=== PATIENT | female | born 1980 | race Caucasian/White ===

== ENCOUNTER 2017-05-28 21:20 | Inpatient (IN) | payer MEDICAID, OTHER ==
[~2017-05-28] VITALS: Ht 167.6 cm; Wt 65.4 kg
--- NOTE | 2017-05-28 21:33 | PD ---
HPI Chief Complaint: Flank/Kidney Pain Time Seen by Provider: 21:26 Travel History International Travel<30 days: No Contact w/Intl Traveler<30days: No Traveled to known affect area: No History of Present Illness HPI 36-year-old female presents to emergency Department with complaint of right flank pain 4 days. Has history of kidney stones. Reports hematuria that started yesterday. Reports dysuria. Denies fevers. Reports vomiting. Denies vaginal discharge, odor. Has been taking ibuprofen for symptom management. Rates pain 10/10. Describes as a stabbing sensation. Pain is constant. No know aggravating or relieving factors. Last menstrual period one week ago. History of asthma. Denies illicit drug use. Denies tobacco use. Does not have an established primary care provider. Has no medical complaints. No other modifying factors or associated signs and symptoms. PFSH Past Medical History Asthma: Yes Social History Tobacco Use: No Allergies-Medications (Allergen,Severity, Reaction): Coded Allergies: Penicillins (Verified Allergy, Unknown, 05/28/17) ciprofloxacin (Verified Allergy, Unknown, 05/28/17) ketorolac (Verified Allergy, Unknown, 05/28/17) Review of Systems Except as stated in HPI: all other systems reviewed are Neg Physical Exam Narrative GENERAL: Well-nourished, well-developed female patient, in no acute distress SKIN: Warm and dry. No rash. HEAD: Atraumatic. Normocephalic. EYES: Pupils equal and round. No scleral icterus. No injection or drainage. ENT: Mucosa pink and moist. NECK: Trachea midline. CARDIOVASCULAR: Regular rate and rhythm. No murmur appreciated. RESPIRATORY: No accessory muscle use. Clear to auscultation. Breath sounds equal bilaterally. GASTROINTESTINAL: Abdomen soft, non-tender, nondistended. Hepatic and splenic margins not palpable. Bowel sounds are active 4 quadrants. Bladder tender and nondistended. MUSCULOSKELETAL: No obvious deformities. No clubbing. No cyanosis. No edema. BACK: Right CVA tenderness NEUROLOGICAL: Awake and alert. Oriented 3. No obvious cranial nerve deficits. Motor grossly within normal limits. Normal speech. Moves all extremities. 5/5 strength to all extremities. PSYCHIATRIC: Appropriate mood and affect; insight and judgment normal. Data Data Last Documented VS Vital Signs Date Time Temp Pulse Resp B/P (MAP) Pulse Ox O2 Delivery O2 Flow Rate FiO2 05/28/17 22:20 99 Room Air 05/28/17 22:00 82 16 112/72 (85) Orders Orders Complete Blood Count With Diff (05/28/17:27) Comprehensive Metabolic Panel (05/28/17:27) Lipase (05/28/17:27) Urinalysis - C+S If Indicated (05/28/17:) Ct Abd/Pel W/O Iv Contrast (05/28/17:27) Iv Access Insert/Monitor (05/28/17:27) Ecg Monitoring (05/28/17:) Oximetry (05/28/17:) Ed Urine Pregnancytest Poc (05/28/17:27) Morphine Inj (Morphine Inj) (05/28/17 22:00) Ondansetron Inj (Zofran Inj) (05/28/17 22:00) Sodium Chlor 0.9% 1000 Ml Inj (Ns 1000 M (05/28/17 21:53) Sodium Chloride 0.9% Flush (Ns Flush) (05/28/17 22:00) Urine Culture (05/28/17 22:13) Ceftriaxone Inj (Rocephin Inj) (05/28/17 23:00) Labs Laboratory Tests Test 05/28/17 22:00 05/28/17 22:13 White Blood Count 10.7 TH/MM3 Red Blood Count 4.20 MIL/MM3 Hemoglobin 10.5 GM/DL Hematocrit 33.0 % Mean Corpuscular Volume 78.6 FL Mean Corpuscular Hemoglobin 25.1 PG Mean Corpuscular Hemoglobin Concent 31.9 % Red Cell Distribution Width 18.2 % Platelet Count 471 TH/MM3 Mean Platelet Volume 7.6 FL Neutrophils (%) (Auto) 60.0 % Lymphocytes (%) (Auto) 30.4 % Monocytes (%) (Auto) 6.9 % Eosinophils (%) (Auto) 1.6 % Basophils (%) (Auto) 1.1 % Neutrophils # (Auto) 6.4 TH/MM3 Lymphocytes # (Auto) 3.3 TH/MM3 Monocytes # (Auto) 0.7 TH/MM3 Eosinophils # (Auto) 0.2 TH/MM3 Basophils # (Auto) 0.1 TH/MM3 CBC Comment DIFF FINAL Differential Comment Urine Color YELLOW Urine Turbidity CLOUDY Urine pH 5.5 Urine Specific [place] 1.023 Urine Protein 30 mg/dL Urine Glucose (UA) NEG mg/dL Urine Ketones NEG mg/dL Urine Occult Blood LARGE Urine Nitrite NEG Urine Bilirubin NEG Urine Urobilinogen LESS THAN 2.0 MG/DL Urine Leukocyte Esterase MOD Urine RBC 5 /hpf Urine WBC 18 /hpf Urine Squamous Epithelial Cells 36 /hpf Urine Amorphous Sediment RARE Urine Bacteria FEW /hpf Urine Mucus FEW /lpf Microscopic Urinalysis Comment CULTURE INDICATED MDM Medical Decision Making Medical Screen Exam Complete: Yes Emergency Medical Condition: Yes Medical Record Reviewed: Yes Differential Diagnosis Pyelonephritis, nephrolithiasis, hydronephrosis, obstruction Narrative Course 36-year-old female with right flank pain and hematuria. Has history of kidney stones. Patient placed on cardiopulmonary monitor. IV site obtained. CBC, CMP , lipase, urinalysis, UPT, CT abdomen/pelvis, morphine, Zofran, normal saline bolus ordered. 2255: Urinalysis with signs of infection. 1 g Rocephin ordered. 2300: Dr. Padron assumed patient care at this time. See her note for final patient disposition. Rose Hernandez [facility] May 28, 2017 21:33
[2017-05-28] MEDS ORDERED: SODIUM CHLOR 0.9% 1000 ML INJ 1,000 ML IV SCH (21:53)
[2017-05-28 22:00] VITALS: BP 112/72; PULSE 82; RESP 16; O2SAT 99
[2017-05-28] MEDS ORDERED: SODIUM CHLORIDE 0.9% FLUSH 10 ML FLUSH IV FLUSH PRN (22:00)
[2017-05-28] MEDS ORDERED: MORPHINE SULFATE 4 MG/ML INJ IV PUSH ONE (22:00)
[2017-05-28] MEDS ORDERED: ONDANSETRON HCL 4 MG/2 ML VIAL IVP ONE (22:00)
[2017-05-28 22:20] VITALS: O2SAT 99
[2017-05-28 22:42] LABS: AUTOMATED NEUTROPHIL # 6.4 TH/MM3 (1.8-7.7); BASOPHIL # 0.1 TH/MM3 (0-0.2); BASOPHIL % 1.1 % (0.0-2.0); EOSINOPHIL # 0.2 TH/MM3 (0-0.4); EOSINOPHIL % 1.6 % (0.0-4.0); HEMO FLAGS DIFF FINAL; LYMPH % 30.4 % (9.0-44.0); LYMPHOCYTE # 3.3 TH/MM3 (1.0-4.8); MEAN CELL VOLUME 78.6 FL (80.0-100.0); MEAN CORPUSCULAR HEMOGLOBIN 25.1 PG (27.0-34.0); MEAN CORPUSCULAR HGB CONC 31.9 % (32.0-36.0); MONO % 6.9 % (0.0-8.0); PLATELET COUNT 471 TH/MM3 (150-450); RED CELL DISTRIBUTION WIDTH 18.2 % (11.6-17.2); WHITE BLOOD COUNT 10.7 TH/MM3 (4.0-11.0)
[2017-05-28 22:44] LABS: BACTERIA, URINE FEW /hpf; BLOOD, URINE LARGE (NEG); COMMENT (UR) CULTURE INDICATED; CULTURE IF INDICATED CULTURE INDICATED; GLUCOSE,URINE NEG (NEG); KETONE, URINE NEG (NEG); MUCUS URINE FEW /lpf (OCC); NITRITE,URINE NEG (NEG); PH, URINE 5.5 (5.0-8.5); SQUAMOUS EPITHELIAL CELL URINE 36 /hpf (0-5); URINE COLOR YELLOW (YELLW/STRAW)
[2017-05-28] MEDS ORDERED: cefTRIAXone INJ 1,000 MG in SODIUM CHLORIDE 0.9% INJ 100 ML IV ONE (23:00)
[2017-05-28 23:02] LABS: ALT (GPT) 18 U/L (10-53); ANION GAP 7 MEQ/L (5-15); AST (GOT) 21 U/L (15-37); BICARBONATE 28.5 MEQ/L (21.0-32.0); BLOOD UREA NITROGEN 12 MG/DL (7-18); CHLORIDE 104 MEQ/L (98-107); GLOMERULAR FILTRATION RATE 121 ML/MIN (>89); SODIUM (NA) 139 MEQ/L (136-145)
[2017-05-28 23:03] LABS: ALKALINE PHOSPHATASE 103 U/L (45-117); TOTAL BILIRUBIN ADULT 0.4 MG/DL (0.2-1.0)
[2017-05-28] MEDS ORDERED: PHENAZOPYRIDINE HCL 100 MG TAB PO ONE (23:30)
--- NOTE | 2017-05-28 23:35 | RADRPT ---
EXAM DATE/TIME: 05/28/2017 22:51 [place] COMPARISON: No previous studies available for comparison. INDICATIONS : Left flank pain. ORAL CONTRAST: No oral contrast ingested. RADIATION DOSE: 5.88 CTDIvol (mGy) MEDICAL HISTORY : None SURGICAL HISTORY : None. ENCOUNTER: Initial ACUITY: 1 day PAIN SCALE: 8/10 LOCATION: Left flank abdomen TECHNIQUE: Volumetric scanning of the abdomen and pelvis was performed. Using automated exposure control and ad justment of the mA and/or kV according to patient size, radiation dose was kept as low as reasonably achievable to obtain optimal diagnostic quality images. DICOM format image data is available electro nically for review and comparison. FINDINGS: LOWER LUNGS: The visualized lower lungs are clear. LIVER: Cholecystectomy clips. Liver is within normal limits. SPLEEN: Normal size without lesion. PANCREAS: Within normal limits. KIDNEYS: Normal in size and shape. There is no mass, stone, or hydronephrosis. ADRENAL GLANDS: Within normal limits. VASCULAR: There is no aortic aneurysm. BOWEL/MESENTERY: Scattered colonic diverticula. Small amount of free fluid in the dependent portion of the pelvis but no focal inflammatory changes to suggest acute diverticulitis. The cecum has a transverse configurati on in the pelvis. Appendix is within normal limits. ABDOMINAL WALL: Within normal limits. RETROPERITONEUM: There is no lymphadenopathy. BLADDER: No wall thickening or mass. REPRODUCTIVE: 4.2 cm cystic mass in the right adnexa. INGUINAL: There is no lymphadenopathy or hernia. MUSCULOSKELETAL: Transitional vertebral body at the lumbosacral junction with prominent arthritic findings at the righ t lateral lumbosacral articulation. Severe arthritic findings of the right hip with severe posterior joint narrowing osteophyte formation, and multiple bone erosions. Large right hip joint effusion. CONCLUSION: 1. No renal or ureteral calculi identified. No evidence of hydronephrosis. 2. Severe right hip arthrosis with severe joint narrowing, large joint effusion, and multiple bony er osions. 3. 4 cm cystic mass in the right adnexa. Most likely to represent an ovarian cyst. 4. Small amount of free fluid in the pelvis. 5. Colonic diverticula but no evidence of acute diverticulitis. Maximiliano Guevara MD on May 28, 2017 at 23:22 Board Certified Radiologist. This report was verified electronically.
[2017-05-28] MEDS ORDERED: MORPHINE SULFATE 2 MG/ML INJ IV PUSH ONE (23:45)
[2017-05-28 23:49] VITALS: TEMP 97.1
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
[2017-05-29] VITALS (7 sets, daily range): BP systolic 80–122; BP diastolic 41–78; PULSE 60–102; RESP 17–22; TEMP 97.6–98.4; O2SAT 96–100
[2017-05-29] MEDS ORDERED: ACETAMINOPHEN/HYDROcodone 325 MG/5 MG TAB PO PRN (02:15)
[2017-05-29] MEDS ORDERED: BISACODYL 10 MG SUPP RECTAL PRN (02:15)
[2017-05-29] MEDS ORDERED: SODIUM CHLORIDE 0.9% FLUSH 10 ML FLUSH IV FLUSH PRN (02:15)
[2017-05-29] MEDS ORDERED: MAGNESIUM HYDROXIDE SUSP 30 ML CUP PO PRN (02:15)
[2017-05-29] MEDS ORDERED: MORPHINE SULFATE 2 MG/ML INJ IV PRN (02:15)
[2017-05-29] MEDS ORDERED: ACETAMINOPHEN 325 MG TAB PO PRN (02:15)
[2017-05-29] MEDS ORDERED: LACTULOSE SYRUP 20 GM/30 ML CUP PO PRN (02:15)
[2017-05-29] MEDS ORDERED: SENNOSIDES 8.6 MG TAB PO PRN (02:15)
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
[2017-05-29] MEDS: SODIUM CHLOR 0.9% 1000 ML INJ 1,000 ML IV SCH ×2 (03:00→16:00)
[2017-05-29 06:34] LABS: BETA HCG QUANT LESS THAN 1 MIU/ML (0-5)
[2017-05-29] MEDS ORDERED: MORPHINE SULFATE 2 MG/ML INJ IV PUSH PRN (08:00)
[2017-05-29] MEDS: DOCUSATE SODIUM 50 MG/SENNA 8.6 MG TAB PO SCH ×2 (08:29→20:46)
[2017-05-29] MEDS: ACETAMINOPHEN/HYDROcodone 325 MG/7.5 MG TAB PO PRN ×2 (08:29→16:00)
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
[2017-05-29] MEDS ORDERED: ALBUAER3 INH (10:00)
--- NOTE | 2017-05-29 11:06 | RADRPT ---
EXAM DATE/TIME: 05/29/2017 10:04 [facility] COMPARISON: No previous studies available for comparison. INDICATIONS : Cough. MEDICAL HISTORY : Asthma. SURGICAL HISTORY : None. ENCOUNTER: Initial ACUITY: 2 days PAIN SCORE: 0/10 LOCATION: Bilateral chest FINDINGS: A single view of the chest demonstrates the lungs to be symmetrically aerated without evidence of mas s, infiltrate or effusion. The cardiomediastinal contours are unremarkable. Osseous structures are intact. CONCLUSION: No acute disease. Kasi Melgar MD on May 29, 2017 at 11:04 Board Certified Radiologist. This report was verified electronically.
[2017-05-29] MEDS: RESP: ALBUTEROL 2.5 MG/IPRATROPIUM 0.5 MG NEB (SCH) NEB ×3 (11:22→19:27)
[2017-05-29] MEDS: SODIUM CHLORIDE 0.9% FLUSH 10 ML FLUSH IV FLUSH SCH ×2 (11:27→20:46)
[2017-05-29] MEDS: guaiFENesin E.R. 600 MG TAB PO SCH ×2 (11:27→20:46)
[2017-05-29] MEDS ORDERED: SODIUM CHLORID 0.9% 500 ML INJ 500 ML IV ONE (12:15)
[2017-05-29 13:34] LABS: AUTOMATED NEUTROPHIL # 2.8 TH/MM3 (1.8-7.7); BASOPHIL % 0.7 % (0.0-2.0); EOSINOPHIL # 0.2 TH/MM3 (0-0.4); EOSINOPHIL % 3.6 % (0.0-4.0); HEMATOCRIT 28.7 % (35.0-46.0); HEMO FLAGS DIFF FINAL; LYMPH % 42.5 % (9.0-44.0); LYMPHOCYTE # 2.6 TH/MM3 (1.0-4.8); MEAN CELL VOLUME 78.3 FL (80.0-100.0); MEAN CORPUSCULAR HEMOGLOBIN 25.1 PG (27.0-34.0); MONO % 7.3 % (0.0-8.0); NEUT % 45.9 % (16.0-70.0); PLATELET COUNT 386 TH/MM3 (150-450); RED BLOOD COUNT 3.66 MIL/MM3 (4.00-5.30); RED CELL DISTRIBUTION WIDTH 18.1 % (11.6-17.2)
[2017-05-29] MEDS: GABAPENTIN 300 MG CAP PO SCH ×2 (14:44→19:05)
[2017-05-29] MEDS: ACETAMINOPHEN/HYDROcodone 325 MG/10 MG TAB PO PRN (20:47)
[2017-05-29 21:03] LABS: FERRITIN 7 NG/ML (8-252)
[2017-05-29 21:15] LABS: TRANSFERRIN IRON PROFILE 234 MG/DL (200-360)
[2017-05-29] MEDS ORDERED: ZOLPIDEM TARTRATE 10 MG TAB PO ONE (21:45)
[2017-05-29] MEDS ORDERED: cefTRIAXone INJ 1,000 MG in SODIUM CHLORIDE 0.9% INJ 100 ML IV SCH (23:00)
[2017-05-30] MEDS ORDERED: oxyCODONE/ACETAMINOPHEN 10 MG/325 MG TAB PO ONE
[2017-05-30] MEDS: ONDANSETRON HCL 4 MG/2 ML VIAL IVP PRN (05:59)
[2017-05-30] MEDS: RESP: ALBUTEROL 2.5 MG/IPRATROPIUM 0.5 MG NEB (SCH) NEB ×3 (07:38→20:00)
[2017-05-30 07:52] VITALS: BP 112/70; PULSE 81; RESP 24; TEMP 98.4; O2SAT 100
[2017-05-30 08:04] LABS: ALT (GPT) 15 U/L (10-53); ANION GAP 8 MEQ/L (5-15); AST (GOT) 14 U/L (15-37); BICARBONATE 24.7 MEQ/L (21.0-32.0); BLOOD UREA NITROGEN 14 MG/DL (7-18); CHLORIDE 108 MEQ/L (98-107); GLOMERULAR FILTRATION RATE 220 ML/MIN (>89); POTASSIUM 3.9 MEQ/L (3.5-5.1); SODIUM (NA) 141 MEQ/L (136-145)
[2017-05-30 08:06] LABS: ALKALINE PHOSPHATASE 77 U/L (45-117); TOTAL BILIRUBIN ADULT 0.2 MG/DL (0.2-1.0)
[2017-05-30 08:13] LABS: AUTOMATED NEUTROPHIL # 2.6 TH/MM3 (1.8-7.7); BASOPHIL % 0.7 % (0.0-2.0); EOSINOPHIL # 0.3 TH/MM3 (0-0.4); EOSINOPHIL % 4.7 % (0.0-4.0); HEMATOCRIT 30.5 % (35.0-46.0); HEMO FLAGS DIFF FINAL; LYMPH % 42.1 % (9.0-44.0); LYMPHOCYTE # 2.4 TH/MM3 (1.0-4.8); MEAN CELL VOLUME 78.9 FL (80.0-100.0); MEAN CORPUSCULAR HEMOGLOBIN 24.7 PG (27.0-34.0); MEAN CORPUSCULAR HGB CONC 31.3 % (32.0-36.0); MONO % 6.2 % (0.0-8.0); NEUT % 46.3 % (16.0-70.0); PLATELET COUNT 340 TH/MM3 (150-450); RED BLOOD COUNT 3.87 MIL/MM3 (4.00-5.30); RED CELL DISTRIBUTION WIDTH 18.1 % (11.6-17.2); WHITE BLOOD COUNT 5.6 TH/MM3 (4.0-11.0)
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
[2017-05-30] MEDS: guaiFENesin E.R. 600 MG TAB PO SCH ×2 (09:03→20:28)
[2017-05-30] MEDS: FERROUS SULFATE 325 MG (65 MG ELEMENTAL IRON) TAB PO SCH ×2 (09:03→20:31)
[2017-05-30] MEDS: ASCORBIC ACID 500 MG TAB PO SCH ×2 (09:04→20:28)
[2017-05-30] MEDS: DOCUSATE SODIUM 50 MG/SENNA 8.6 MG TAB PO SCH ×2 (09:04→20:28)
[2017-05-30] MEDS: SODIUM CHLORIDE 0.9% FLUSH 10 ML FLUSH IV FLUSH SCH ×2 (09:04→21:00)
[2017-05-30] MEDS: ACETAMINOPHEN/HYDROcodone 325 MG/10 MG TAB PO PRN ×4 (09:05→20:28)
[2017-05-30] MEDS: LIDOCAINE HCL 5% PATCH T-DERMAL SCH ×2 (11:51→16:59)
[2017-05-30] MEDS: GABAPENTIN 300 MG CAP PO SCH ×3 (11:52→18:09)
--- NOTE | 2017-05-30 11:52 | PD.RAD ---
Post Procedure Progress Note Pre Procedure Diagnosis: (1) Hip joint effusion Post Procedure Diagnosis: (1) Hip joint effusion Procedure Date: May 30, 2017 Supervising Radiologist: Dragan Harris Proceduralist/Assist: Nelson Owen RT(R), RT Ene(R)() Anesthesia: Local Plan of Activity Patient to Unit: Nursing Unit Patient Condition: Good See PACS Report for procedural detail/treatment Drainage Procedure Procedure 1 Imaging Guidance: Fluoroscopy Side: Right Procedure Type: Aspiration (hip) Fluid Removal (CCs): 5 Fluid Description: Eve, Red Dragan Harris MD May 30, 2017 11:52
[2017-05-30] MEDS ORDERED: IOHEXOL 350 MG/ML 100 ML BTL (for RAD DIAG) OTHER ONE (11:55)
[2017-05-30] MEDS: hydrOXYzine HCL 25 MG TAB PO PRN ×2 (12:50→20:27)
[2017-05-30 13:02] VITALS: BP 103/64; PULSE 81; RESP 24; TEMP 98.6; O2SAT 100
[2017-05-30] MEDS ORDERED: PIPERACIL-TAZO 3.375 GM PREMIX 50 ML IV SCH (16:45)
[2017-05-30] MEDS ORDERED: Vancomycin Consult Pharmacy 1 EA OTHER SCH (16:45)
--- NOTE | 2017-05-30 16:48 | HHI.PR ---
Subjective Remarks Patient complaining of acute on chronic right hip pain. She said the past few weeks have worsened. Patient recently moved here from [facility]. She stated that she was on chronic pain medication prior. She stated no one is prescribing her pain medication moment but her friend will give her pain medication when needed. Patient stated that she was also on anxiety medication she was in [place] and stated that she feels anxious at the moment. Otherwise no other complaints. IV morphine was held secondary to hypotension caused by IV morphine. she also stated that prior to auscultation she took clonidine from her friend because she stated that it helped her sleep. Objective Vitals Vital Signs Date Time Temp Pulse Resp B/P (MAP) Pulse Ox O2 Delivery O2 Flow Rate FiO2 05/30/17 13:02 98.6 81 24 103/64 (77) 100 05/30/17 07:52 98.4 81 24 112/70 (84) 100 05/29/17 23:37 98.2 94 17 114/68 (83) 96 05/29/17 19:02 98.1 102 17 122/78 (93) 97 I/O 05/29/17 05/29/17 05/29/17 05/30/17 05/30/17 05/30/17 07:00 15:00 23:00 07:00 15:00 23:00 # Voids 1 Result Diagram: 05/30/17 0656 05/30/17 0656 Objective Remarks GENERAL:in NAD CARDIOVASCULAR: Regular rate and rhythm without murmurs, gallops, or rubs. RESPIRATORY: Breath sounds equal bilaterally. No accessory muscle use. GASTROINTESTINAL: Abdomen soft, non-tender, nondistended. MUSCULOSKELETAL right help + TTP of right hip and decreased range of motion secondary to pain. No erythema noted. BACK: Nontender without obvious deformity. No CVA tenderness. Medications and IVs Current Medications Morphine Sulfate (Morphine Inj) 4 mg ONCE ONCE IV PUSH Last administered on 22:19; Start 05/28/17 at 22:00; Stop 05/28/17 at 22:01; Status DC Ondansetron HCl (Zofran Inj) 4 mg ONCE ONCE IVP Last administered on 22:19; Start 05/28/17 at 22:00; Stop 05/28/17 at 22:01; Status DC Sodium Chloride 1,000 ml @ 1,000 mls/hr Q1H IV Last administered on 22:19; Start 05/28/17 at 21:53; Stop 05/28/17 at 22:52; Status DC Sodium Chloride (NS Flush) 2 ml UNSCH PRN IV FLUSH FLUSH AFTER USING IV ACCESS ; Start 05/28/17 at 22:00; Stop 05/29/17 at 09:52; Status DC Ceftriaxone Sodium 1000 mg/ Sodium Chloride 100 ml @ 200 mls/hr ONCE ONCE IV Last administered on 05/28/17 23:40; Start 05/28/17 at 23:00; Stop 05/28/17 at 23:29; Status DC Phenazopyridine HCl (Pyridium) 100 mg ONCE ONCE PO Last administered on 00:56; Start 05/28/17 at 23:30; Stop 05/28/17 at 23:31; Status DC Morphine Sulfate (Morphine Inj) 2 mg ONCE ONCE IV PUSH Last administered on 23:41; Start 05/28/17 at 23:45; Stop 05/28/17 at 23:46; Status DC Ceftriaxone Sodium 1000 mg/ Sodium Chloride 100 ml @ 200 mls/hr Q24H IV Last administered on 05/29/17 23:49; Start 05/29/17 at 23:00 Sodium Chloride (NS Flush) 2 ml UNSCH PRN IV FLUSH FLUSH AFTER USING IV ACCESS ; Start 05/29/17 at 02:15 Sodium Chloride (NS Flush) 2 ml BID IV FLUSH Last administered on 05/29/17 11 :27; Start 05/29/17 at 09:00 Ondansetron HCl (Zofran Inj) 4 mg Q6H PRN IVP NAUSEA OR VOMITING Last administered on 05/30/17 05:59; Start 05/29/17 at 02:15 Acetaminophen (Tylenol) 650 mg Q6H PRN PO FEVER/PAIN SCALE 1 TO 2; Start 05/29 at 02:15 Acetaminophen/ Hydrocodone Bitart ([place] 5-325 Mg) 1 tab Q4H PRN PO PAIN SCALE 3 TO 5 Last administered on 05/29/17 02:37; Start 05/29/17 at 02:15 Morphine Sulfate (Morphine Inj) 2 mg Q3H PRN IV PAIN 6-10 Last administered on 05/29/17 04:50; Start 05/29/17 at 02:15; Stop 05/29/17 at 07:56; Status DC Senna/Docusate Sodium (Aliza-Colace) 1 tab BID PO Last administered on 09:04; Start 05/29/17 at 09:00 Magnesium Hydroxide (Milk Of Magnesia Liq) 30 ml Q12H PRN PO Mild constipation ; Start 05/29/17 at 02:15 Sennosides (Senokot) 17.2 mg Q12H PRN PO Moderate constipation; Start at 02:15 Bisacodyl (Dulcolax Supp) 10 mg DAILY PRN RECTAL SEVERE CONSITIPATION; Start 05/29/17 at 02:15 Lactulose (Lactulose Liq) 30 ml DAILY PRN PO SEVERE CONSITIPATION; Start 05/29 at 02:15 Acetaminophen/ Hydrocodone Bitart ([place] 7.5-325 Mg) 1 tab Q4H PRN PO pain 7- 10 Last administered on 05/29/17 16:00; Start 05/29/17 at 08:00; Stop at 20:34; Status DC Morphine Sulfate (Morphine Inj) 2 mg Q3H PRN IV PUSH breakthrough pain Last administered on 05/29/17 11:27; Start 05/29/17 at 08:00; Status Future Hold Albuterol/ Ipratropium (Duoneb Neb) 1 ampule Q4HR WHILE AWAKE NEB NEB Last administered on 05/29/17 15:07; Start 05/29/17 at 12:00 Gabapentin (Neurontin) 300 mg TID PO Last administered on 05/29/17 19:05; Start 05/29/17 at 13:00 Guaifenesin (Mucinex Er) 600 mg BID PO Last administered on 05/30/17 09:03; Start 05/29/17 at 10:15 Sodium Chloride 500 ml @ 500 mls/hr BOLUS ONCE IV Last administered on 14:44; Start 05/29/17 at 12:15; Stop 05/29/17 at 13:14; Status DC Sodium Chloride 1,000 ml @ 100 mls/hr Q10H IV Last administered on 05/29/17 03:00; Start 05/29/17 at 13:00 Acetaminophen/ Hydrocodone Bitart ([place] 10-325 Mg) 1 tab Q4H PRN PO pain 7 - 10 Last administered on 05/30/17 12:51; Start 05/29/17 at 20:45 Zolpidem Tartrate (Ambien) 10 mg ONCE ONCE PO Last administered on 05/29/17 21:57; Start 05/29/17 at 21:45; Stop 05/29/17 at 21:46; Status DC Oxycodone/ Acetaminophen (Percocet 10-325 Mg) 1 tab ONCE ONCE PO Last administered on 05/30/17 05:14; Start 05/30/17 at 00:00; Stop 05/30/17 at 00 :01; Status DC Ferrous Sulfate (Ferrous Sulfate) 325 mg BID PO Last administered on 09:03; Start 05/30/17 at 09:00 Ascorbic Acid (Vitamin C) 250 mg BID PO Last administered on 05/30/17 09:04; Start 05/30/17 at 09:00 Hydroxyzine HCl (Atarax) 25 mg Q6H PRN PO anxiety Last administered on 12:50; Start 05/30/17 at 10:00 Lidocaine HCl (Lidoderm 5% Patch.12 Hr) 1 patch DAILY T-DERMAL ; Start at 10:00 Iohexol (Omnipaque 350 Inj) 10 ml STK-MED ONCE OTHER Last administered on 05/30 11:55; Start 05/30/17 at 11:55; Stop 05/30/17 at 11:58; Status DC A/P Problem List: (1) Intractable pain ICD Code: R52 - Pain, unspecified Status: Acute (2) Hip joint effusion ICD Code: M25.459 - Effusion, unspecified hip Status: Acute (3) UTI (urinary tract infection) ICD Code: N39.0 - Urinary tract infection, site not specified Status: Acute Assessment and Plan A/P Acute on chronic right hip pain Anxiety History of chronic opioid dependence Will need to continue to hold IV morphine since patient does become hypotensive on medication. We'll continue with norco as needed for pain. Will also add a Lidoderm patch once patient have procedure done. Orthopedic consulted and consulted IR for aspiration of right hip to evaluate for possible infection. Based on results will determine medical management. Problem Qualifiers (1) Hip joint effusion: Qualified Codes: M25.451 - Effusion, right hip (2) UTI (urinary tract infection): Qualified Codes: N30.01 - Acute cystitis with hematuria Guera Forte MD May 30, 2017 16:48
[2017-05-30 16:50] VITALS: BP 114/65; PULSE 76; RESP 22; TEMP 97.6; O2SAT 96
[2017-05-30] MEDS: SODIUM CHLOR 0.9% 1000 ML INJ 1,000 ML IV SCH ×2 (16:57→16:59)
[2017-05-30] MEDS ORDERED: VANCOMYCIN INJ 1,000 MG in SODIUM CHLOR 0.9% 250 ML INJ 250 ML IV SCH (18:00)
[2017-05-30 20:00] VITALS: BP 128/62; PULSE 82; RESP 16
[2017-05-30 21:50] VITALS: BP 113/84; PULSE 88; RESP 20; TEMP 97.5; O2SAT 100
[2017-05-30] MEDS: ZOLPIDEM TARTRATE 10 MG TAB PO PRN (22:41)
[2017-05-31] VITALS: BP 116/56; PULSE 75; RESP 17; TEMP 97.7; O2SAT 98
[2017-05-31] MEDS: ACETAMINOPHEN/HYDROcodone 325 MG/10 MG TAB PO PRN ×6 (00:26→21:38)
[2017-05-31] MEDS: VANCOMYCIN INJ 1,000 MG in SODIUM CHLOR 0.9% 250 ML INJ 250 ML IV SCH ×2 (00:26→04:52)
[2017-05-31 04:00] VITALS: BP 109/53; PULSE 93; RESP 17; TEMP 97.5; O2SAT 98
[2017-05-31] MEDS: SODIUM CHLOR 0.9% 1000 ML INJ 1,000 ML IV SCH (04:45)
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
[2017-05-31] MEDS: RESP: ALBUTEROL 2.5 MG/IPRATROPIUM 0.5 MG NEB (SCH) NEB ×4 (07:45→21:33)
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
[2017-05-31 08:00] VITALS: BP 114/66; PULSE 80; RESP 16; TEMP 97.3; O2SAT 95
[2017-05-31] MEDS: DOCUSATE SODIUM 50 MG/SENNA 8.6 MG TAB PO SCH ×2 (08:13→21:37)
[2017-05-31] MEDS: SODIUM CHLORIDE 0.9% FLUSH 10 ML FLUSH IV FLUSH SCH ×2 (08:13→21:38)
[2017-05-31] MEDS: ASCORBIC ACID 500 MG TAB PO SCH ×2 (08:14→21:37)
[2017-05-31] MEDS: GABAPENTIN 300 MG CAP PO SCH ×3 (08:14→17:44)
[2017-05-31] MEDS: FERROUS SULFATE 325 MG (65 MG ELEMENTAL IRON) TAB PO SCH ×2 (08:14→21:37)
[2017-05-31] MEDS: guaiFENesin E.R. 600 MG TAB PO SCH ×2 (08:15→21:37)
[2017-05-31] MEDS: LIDOCAINE HCL 5% PATCH T-DERMAL SCH (08:15)
--- NOTE | 2017-05-31 09:50 | RADRPT ---
EXAM DATE/TIME: 05/30/2017 12:13 [place] COMPARISON: No previous studies available for comparison. INDICATIONS : Patient with right hip effusion in need of aspiration. MEDICAL HISTORY : 1.UTI 2.Right hip effusion SURGICAL HISTORY : 1.Tubal ligation 2.Cholecystectomy ENCOUNTER: Initial ACUITY: 4 - 6 months PAIN SCORE: 10/10 Right Hip. FLUORO TIME: 4.4 minutes IMAGE SERIES: 2 CONTRAST: 10 cc Omnipaque 350 DEVICE(S): 22 gauge needle was placed into the right hip joint. RESPONSE: Pre procedure pain level was 10/10 Post procedure pain level was 10/10 FLUID: Total volume of 5 cc of clear yellow-red fluid was removed. Fluid specimen was submitted to the lab for evaluation. PROCEDURE : 1. Fluoroscopically guided right hip aspiration. The risks, benefits and alternatives to the procedure were explained and verbal and written consent w as obtained. The site was prepped in sterile fashion. Full sterile technique was used, including ca p, mask, sterile gloves and gown and a large sterile sheet. Hand hygiene and 2% chlorhexidine and/or betadine/alcohol prep was utilized per protocol for cutaneous antisepsis. The skin and subcutaneous tissues were infiltrated with local anesthetic solution. The patient tolerated the procedure well and there were no complications. CONCLUSION: Uncomplicated aspiration as above. Dragan Harris MD on May 31, 2017 at 9:44 Board Certified Radiologist. This report was verified electronically.
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
[2017-05-31] MEDS ORDERED: PHARMACY ORDERED LAB ONE (11:45)
[2017-05-31 12:00] VITALS: BP 118/68; PULSE 97; RESP 16; TEMP 98.1; O2SAT 98
[2017-05-31] MEDS: hydrOXYzine HCL 25 MG TAB PO PRN ×2 (12:23→17:44)
[2017-05-31] MEDS: MORPHINE SULFATE 2 MG/ML INJ IV PUSH PRN ×4 (12:24→23:12)
[2017-05-31] MEDS ORDERED: MORPHINE SULFATE 2 MG/ML INJ IV PUSH PRN (14:00)
--- NOTE | 2017-05-31 15:32 | HHI.PR ---
Subjective Remarks Follow-up right hip pain. Continues to have pain and limited range of motion. Discussed with RN, pain management to include IV morphine at a lower dose to avoid hypotension. Objective Vitals Vital Signs Date Time Temp Pulse Resp B/P (MAP) Pulse Ox O2 Delivery O2 Flow Rate FiO2 05/31/17 12:00 98.1 97 16 118/68 (85) 98 05/31/17 11:20 Room Air 05/31/17 08:41 Room Air 05/31/17 08:00 97.3 80 16 114/66 (82) 95 05/31/17 04:00 Room Air 05/31/17 04:00 97.5 93 17 109/53 (71) 98 05/31/17 00:00 Room Air 05/31/17 00:00 97.7 75 17 116/56 (76) 98 05/30/17 22:00 Room Air 05/30/17 21:50 97.5 88 20 113/84 (94) 100 05/30/17 20:00 82 16 128/62 (84) 05/30/17 16:50 97.6 76 22 114/65 (81) 96 I/O 05/30/17 05/30/17 05/30/17 05/31/17 05/31/17 05/31/17 07:00 15:00 23:00 07:00 15:00 23:00 Intake Total 1250 ml Balance 1250 ml Intake IV Total 1250 ml # Voids 1 Result Diagram: 05/30/17 0656 05/30/17 0656 Imaging Last Impressions Hip Aspiration/Injection 05/29/17 0000 Signed Impressions: Service Date/Time: Tuesday, May 30, 2017 12:13 - CONCLUSION: Uncomplicated aspiration as above. Dragan Harris MD Chest X-Ray 05/29/17 0000 Signed Impressions: Service Date/Time: Monday, May 29, 2017 10:04 - CONCLUSION: No acute disease. Kasi Melgar MD Abdomen/Pelvis CT 05/28/172126 Signed Impressions: Service Date/Time: Sunday, May 28, 2017 22:51 - CONCLUSION: 1. No renal or ureteral calculi identified. No evidence of hydronephrosis. 2. Severe right hip arthrosis with severe joint narrowing, large joint effusion, and multiple bony erosions. 3. 4 cm cystic mass in the right adnexa. Most likely to represent an ovarian cyst. 4. Small amount of free fluid in the pelvis. 5. Colonic diverticula but no evidence of acute diverticulitis. Maximiliano Guevara MD Objective Remarks GENERAL:in NAD, well-developed and well-nourished CARDIOVASCULAR: Regular rate and rhythm without murmurs, gallops, or rubs. RESPIRATORY: Breath sounds equal bilaterally. No accessory muscle use. GASTROINTESTINAL: Abdomen soft, non-tender, nondistended. MUSCULOSKELETAL right help + TTP of right hip/inguinal area and decreased range of motion secondary to pain. No erythema noted. BACK: Nontender without obvious deformity. No CVA tenderness. Neuro: Awake and alert nonfocal Procedures Aspiration of right hip A/P Problem List: (1) Intractable pain ICD Code: R52 - Pain, unspecified Status: Acute (2) Hip joint effusion ICD Code: M25.459 - Effusion, unspecified hip Status: Acute (3) UTI (urinary tract infection) ICD Code: N39.0 - Urinary tract infection, site not specified Status: Acute Assessment and Plan Acute on chronic right hip pain. She has effusion on imaging studies status post aspiration to evaluate for possible septic joint. Continue IV vancomycin, pain management with [place] and IV morphine. Infectious disease and orthopedic surgery have been consulted Anxiety. Stable continue Atarax History of chronic opioid dependence. Counseled Transient hypotension secondary to narcotic. Improved. Continue to monitor Iron deficiency anemia. Continue iron. Denies gross bleeding. Abnormal urinalysis. Urine culture with contaminants DVT prophylaxis with SCD and early ambulation. Physical therapy evaluation Discharge Planning Not ready for discharge might need IND by orthopedic surgery for septic joint Problem Qualifiers (1) Hip joint effusion: Qualified Codes: M25.451 - Effusion, right hip (2) UTI (urinary tract infection): Qualified Codes: N30.01 - Acute cystitis with hematuria Rubens Berrios MD May 31, 2017 15:32
[2017-05-31 16:00] VITALS: BP 111/69; PULSE 98; RESP 16; TEMP 98.3; O2SAT 99
[2017-05-31] MEDS: VANCOMYCIN 1,000 MG/NS 250 ML IV SCH ×2 (17:44)
[2017-05-31 20:00] VITALS: BP 107/56; PULSE 80; RESP 20; TEMP 98.3; O2SAT 94
[2017-05-31] MEDS: ZOLPIDEM TARTRATE 10 MG TAB PO PRN (21:37)
[2017-06-01] VITALS: BP 125/57; PULSE 95; RESP 20; TEMP 97.9; O2SAT 98
[2017-06-01] MEDS: ACETAMINOPHEN/HYDROcodone 325 MG/10 MG TAB PO PRN ×6 (01:28→21:56)
[2017-06-01] MEDS: MORPHINE SULFATE 2 MG/ML INJ IV PUSH PRN ×5 (03:14→19:56)
[2017-06-01 04:00] VITALS: BP 107/53; PULSE 82; RESP 21; TEMP 97.7; O2SAT 98
[2017-06-01] MEDS ORDERED: CHLORHEXIDINE GLUCONATE 2 % 1 PACK (2 CLOTHS) TOPICAL PRN (05:15)
[2017-06-01] MEDS ORDERED: LACTATED RINGER'S 1000 ML IV PRN (05:15)
[2017-06-01] MEDS ORDERED: POVIDONE IODINE 5% (ANTISEPSIS KIT) 4 APPLICATIONS EACH NARE PRN (05:15)
[2017-06-01] MEDS ORDERED: SODIUM CHLORID 0.9% 500 ML IV PRN (05:15)
[2017-06-01] MEDS: VANCOMYCIN 1,000 MG/NS 250 ML IV SCH ×4 (05:30→18:09)
[2017-06-01] MEDS: RESP: ALBUTEROL 2.5 MG/IPRATROPIUM 0.5 MG NEB (SCH) NEB ×4 (07:54→19:07)
[2017-06-01 08:01] VITALS: BP 123/57; PULSE 90; RESP 17; TEMP 97.9; O2SAT 99
[2017-06-01] MEDS: GABAPENTIN 300 MG CAP PO SCH ×3 (08:33→18:09)
[2017-06-01] MEDS: DOCUSATE SODIUM 50 MG/SENNA 8.6 MG TAB PO SCH ×2 (08:33→19:56)
[2017-06-01] MEDS: guaiFENesin E.R. 600 MG TAB PO SCH ×2 (08:33→19:55)
[2017-06-01] MEDS: SODIUM CHLORIDE 0.9% FLUSH 10 ML FLUSH IV FLUSH SCH ×2 (08:33→19:56)
[2017-06-01] MEDS: FERROUS SULFATE 325 MG (65 MG ELEMENTAL IRON) TAB PO SCH ×2 (08:33→19:56)
[2017-06-01] MEDS: ASCORBIC ACID 500 MG TAB PO SCH ×2 (08:33→19:56)
[2017-06-01] MEDS: LIDOCAINE HCL 5% PATCH T-DERMAL SCH (08:34)
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
[2017-06-01 12:03] VITALS: BP 103/52; PULSE 92; RESP 17; TEMP 97.6; O2SAT 98
[2017-06-01] MEDS: CYCLOBENZAPRINE HCL 10 MG TAB PO PRN (16:00)
[2017-06-01 16:01] VITALS: BP 102/59; PULSE 82; RESP 18; TEMP 97.8; O2SAT 97
[2017-06-01] MEDS: ONDANSETRON HCL 4 MG/2 ML VIAL IVP PRN ×2 (16:06→21:56)
--- NOTE | 2017-06-01 17:33 | HHI.DCPOC ---
Discharge Care Plan Diagnosis: (1) Hip joint effusion Your Health Problems Are: Difficulty with ADL Exercise Tolerance Goals to Promote Your Health * To prevent worsening of your condition and complications * To maintain your health at the optimal level Directions to Meet Your Goals Take your medications as prescribed Follow your dietary instruction Follow activity as directed Keep your appointments as scheduled Take your immunizations and boosters as scheduled If your symptoms worsen call your PCP, if no PCP go to Urgent Care Center or Emergency Room Smoking is Dangerous to Your Health. Avoid second hand smoke Call the 24-hour hour crisis hotline for domestic abuse at Rubens Berrios MD Jun 01, 2017 17:33
--- NOTE | 2017-06-01 17:34 | HHI.FF ---
Face to Face Verification Diagnosis: (1) Hip joint effusion Physical Therapy Order: Evaluate and Treat, Improve ambulation, Strength and gait training I have seen patient Yvonne Carbone on 06/01/17. My clinical findings support the need for the requested home health care services because: Ltd mobility - disease progression I certify that my clinical findings support that this patient is homebound because: Unsteady gait/balance Rubens Berrios MD Jun 01, 2017 17:34
--- NOTE | 2017-06-01 17:36 | HHI.PR ---
Subjective Remarks Follow-up right pain. Requesting muscle relaxer. Discussed with RN Objective Vitals Vital Signs Date Time Temp Pulse Resp B/P (MAP) Pulse Ox O2 Delivery O2 Flow Rate FiO2 06/01/17 16:01 97.8 82 18 102/59 (73) 97 06/01/17 15:33 Room Air 06/01/17 12:17 Room Air 06/01/17 12:03 97.6 92 17 103/52 (69) 98 06/01/17 08:44 Room Air 06/01/17 08:01 97.9 90 17 123/57 (79) 99 06/01/17 04:00 97.7 82 21 107/53 (71) 98 06/01/17 04:00 Room Air 06/01/17 00:00 Room Air 06/01/17 00:00 97.9 95 20 125/57 (79) 98 05/31/17 20:00 Room Air 05/31/17 20:00 98.3 80 20 107/56 (73) 94 05/31/17 17:45 Room Air I/O 05/31/17 05/31/17 05/31/17 06/01/17 06/01/17 06/01/17 07:00 15:00 23:00 07:00 15:00 23:00 Intake Total 1250 ml 1200 ml 400 ml Output Total 650 ml Balance 1250 ml 1200 ml -250 ml Intake Oral 1200 ml 400 ml IV Total 1250 ml Output Urine Total 650 ml # Voids 1 3 # Bowel Movements 1 0 Result Diagram: 05/30/17 0656 05/30/17 0656 Imaging Last Impressions Hip Aspiration/Injection 05/29/17 0000 Signed Impressions: Service Date/Time: Tuesday, May 30, 2017 12:13 - CONCLUSION: Uncomplicated aspiration as above. Dragan Harris MD Chest X-Ray 05/29/17 0000 Signed Impressions: Service Date/Time: Monday, May 29, 2017 10:04 - CONCLUSION: No acute disease. Kasi Melgar MD Abdomen/Pelvis CT 05/28/172126 Signed Impressions: Service Date/Time: Sunday, May 28, 2017 22:51 - CONCLUSION: 1. No renal or ureteral calculi identified. No evidence of hydronephrosis. 2. Severe right hip arthrosis with severe joint narrowing, large joint effusion, and multiple bony erosions. 3. 4 cm cystic mass in the right adnexa. Most likely to represent an ovarian cyst. 4. Small amount of free fluid in the pelvis. 5. Colonic diverticula but no evidence of acute diverticulitis. Maximiliano Guevara MD Objective Remarks GENERAL:in NAD, well-developed and well-nourished CARDIOVASCULAR: Regular rate and rhythm without murmurs, gallops, or rubs. RESPIRATORY: Breath sounds equal bilaterally. No accessory muscle use. GASTROINTESTINAL: Abdomen soft, non-tender, nondistended. MUSCULOSKELETAL right hip + TTP of right hip/inguinal area and decreased range of motion secondary to pain. No erythema noted. BACK: Nontender without obvious deformity. No CVA tenderness. Neuro: Awake and alert nonfocal Procedures Aspiration of right hip A/P Problem List: (1) Intractable pain ICD Code: R52 - Pain, unspecified Status: Acute (2) Hip joint effusion ICD Code: M25.459 - Effusion, unspecified hip Status: Acute (3) UTI (urinary tract infection) ICD Code: N39.0 - Urinary tract infection, site not specified Status: Acute Assessment and Plan Acute on chronic right hip pain. She has effusion on imaging studies status post aspiration to evaluate for possible septic joint. Continue IV vancomycin, pain management with [place] and IV morphine. Flexeril added for muscle spasm. Cultures negative to date (patient received 2 doses of Rocephin prior to aspiration) Infectious disease and orthopedic surgery have been consulted. We' ll discontinue antibiotics if cultures remain negative Anxiety. Stable continue Atarax History of chronic opioid dependence. Counseled Transient hypotension secondary to narcotic. Improved. Continue to monitor Iron deficiency anemia. Continue iron. Denies gross bleeding. Abnormal urinalysis. Urine culture with contaminants DVT prophylaxis with SCD and early ambulation. Physical therapy evaluation Discharge Planning Not ready for discharge might need IND by orthopedic surgery for septic joint Problem Qualifiers (1) Hip joint effusion: Qualified Codes: M25.451 - Effusion, right hip (2) UTI (urinary tract infection): Qualified Codes: N30.01 - Acute cystitis with hematuria Rubens Berrios MD Jun 01, 2017 17:36
[2017-06-01 20:00] VITALS: BP 96/52; PULSE 95; RESP 21; TEMP 97.7; O2SAT 94
[2017-06-01] MEDS: ZOLPIDEM TARTRATE 10 MG TAB PO PRN (21:56)
[2017-06-02] VITALS: BP 106/54; PULSE 78; RESP 20; TEMP 97.6; O2SAT 94
[2017-06-02] MEDS: CYCLOBENZAPRINE HCL 10 MG TAB PO PRN ×2 (00:20→08:16)
[2017-06-02] MEDS: MORPHINE SULFATE 2 MG/ML INJ IV PUSH PRN ×3 (00:20→08:17)
[2017-06-02] MEDS: ONDANSETRON HCL 4 MG/2 ML VIAL IVP PRN ×2 (02:03→08:17)
[2017-06-02] MEDS: ACETAMINOPHEN/HYDROcodone 325 MG/10 MG TAB PO PRN ×4 (02:04→14:47)
[2017-06-02 04:00] VITALS: BP 117/61; PULSE 76; RESP 19; TEMP 97.8; O2SAT 100
[2017-06-02] MEDS ORDERED: PHARMACY ORDERED LAB ONE (05:45)
[2017-06-02] MEDS: VANCOMYCIN 1,000 MG/NS 250 ML IV SCH ×2 (06:55)
[2017-06-02 08:01] VITALS: BP 101/52; PULSE 72; RESP 18; TEMP 97.4; O2SAT 99
[2017-06-02] MEDS: GABAPENTIN 300 MG CAP PO SCH (08:16)
[2017-06-02] MEDS: ASCORBIC ACID 500 MG TAB PO SCH (08:16)
[2017-06-02] MEDS: FERROUS SULFATE 325 MG (65 MG ELEMENTAL IRON) TAB PO SCH (08:16)
[2017-06-02] MEDS: guaiFENesin E.R. 600 MG TAB PO SCH (08:16)
[2017-06-02] MEDS: DOCUSATE SODIUM 50 MG/SENNA 8.6 MG TAB PO SCH (08:17)
[2017-06-02] MEDS: RESP: ALBUTEROL 2.5 MG/IPRATROPIUM 0.5 MG NEB (SCH) NEB ×2 (09:08→12:00)
--- NOTE | 2017-06-02 09:44 | PD.ORT.PN ---
Subjective Subjective Remarks Still complains of pain to right hip Objective Vitals Vital Signs Date Time Temp Pulse Resp B/P (MAP) Pulse Ox O2 Delivery O2 Flow Rate FiO2 06/02/17 08:01 97.4 72 18 101/52 (68) 99 06/02/17 04:00 97.8 76 19 117/61 (79) 100 06/02/17 00:00 97.6 78 20 106/54 (71) 94 06/01/17 20:00 97.7 95 21 96/52 (67) 94 06/01/17 19:50 Room Air 06/01/17 16:01 97.8 82 18 102/59 (73) 97 06/01/17 15:33 Room Air 06/01/17 12:17 Room Air 06/01/17 12:03 97.6 92 17 103/52 (69) 98 I/O 06/01/17 06/01/17 06/01/17 06/02/17 06/02/17 06/02/17 07:00 15:00 23:00 07:00 15:00 23:00 Intake Total 400 ml 610 ml 880 ml Output Total 650 ml Balance -250 ml 610 ml 880 ml Intake Oral 400 ml 360 ml 880 ml IV Total 250 ml Output Urine Total 650 ml # Voids 3 4 # Bowel Movements 0 1 0 Result Diagram: 05/30/1756 05/30/17 06 Objective Remarks Patient is awake and alert. RLE: significant pain with motion of hip, nvi distally. 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 Jun 02, 2017 09:44
[2017-06-02] MEDS ORDERED: WALKER WHEELS/F1 MIS (09:45)
[2017-06-02] MEDS ORDERED: busPIRone HCL 5 MG TAB PO SCH (11:15)
[2017-06-02] MEDS ORDERED: FERR325T20 PO (11:16)
[2017-06-02] MEDS ORDERED: NEUR300C PO (11:16)
[2017-06-02] MEDS ORDERED: CYCL10TA PO (11:16)
[2017-06-02] MEDS ORDERED: HYDR-3583 PO (11:16)
[2017-06-02] MEDS ORDERED: BUSP5TAB PO (11:16)
[2017-06-02 12:11] VITALS: BP 101/55; PULSE 80; RESP 18; TEMP 98; O2SAT 97
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
[2017-06-02] MEDS ORDERED: VANCOMYCIN 1,000 MG/NS 250 ML IV SCH ×2 (14:00)
== END 2017-06-02 15:30 | disposition home or self-care (01) | DRG 565 ==
LOC: NEPC 21:20 → NEDA 05-29 02:03 → NEPFCDU 05-29 02:50 → OBSVTOIN 05-30 16:49 → N04A 05-30 21:55
PROVIDERS: ADMIT Internal Medicine; ATTEND Internal Medicine
PROC: 0S993ZX Drainage of Right Hip Joint, Percutaneous Approach, Diagnostic (ICD-10-PCS; principal; 2017-05-30)
DX: M25.451 Effusion, right hip (principal); M87.851 Other osteonecrosis, right femur; I95.2 Hypotension due to drugs; F11.20 Opioid dependence, uncomplicated; N30.01 Acute cystitis with hematuria; J45.909 Unspecified asthma, uncomplicated; M16.11 Unilateral primary osteoarthritis, right hip; D50.9 Iron deficiency anemia, unspecified; G89.29 Other chronic pain; N83.209 Unspecified ovarian cyst, unspecified side; T14.8XXS Other injury of unspecified body region, sequela; X99 Assault by sharp object; T40.2X5A Adverse effect of other opioids, initial encounter; M62.838 Other muscle spasm; F41.9 Anxiety disorder, unspecified; Z87.442 Personal history of urinary calculi; Z88.0 Allergy status to penicillin; Z88.1 Allergy status to other antibiotic agents
CPT/HCPCS: 20610; 71010; 74176; 76937; 77002; 80053; 80202; 80307; 81001; 82728; 83540; 83550; 83605; 83690; 84550; 84702; 84703; 85025; 85652; 86140; 87040; 87070; 87086; 87205; 94640; 94664; 96361; 96365; 96375; 96376; G0378; J0696; J2270; J2405; J3370; J7030; J7040; J7050; Q9967